=== PATIENT | male | born 1950 | race Caucasian/White ===

== ENCOUNTER 2024-04-20 01:21 | Observation (INO) | payer OTHER ==
[2024-04-20 01:29] VITALS: BMI 33.0
[2024-04-20] MEDS ORDERED: ASPIRIN 325 MG TABLET ONE (01:56)
[2024-04-20] MEDS: ASPIRIN 81 MG CHEWABLE TABLETS PO ONE (02:08)
[2024-04-20] MEDS ORDERED: PANTOPRAZOLE 40 MG TABLET PO ONE (02:56)
[2024-04-20] MEDS: PANTOPRAZOLE 40 MG TABLET PO ONE (03:03)
[2024-04-20 03:24] LABS: BASO % 0.7 % (0-2.0); EOS % 2.4 % (0-4.5); HEMATOCRIT 44.8 % (35.4-49); HEMOGLOBIN 15.4 GM/dL (11.7-16.9); LYMPH % 15.3 % (8-40); MCH 27.6 pg (25.7-33.7); MCHC 34.4 g/dl (32.0-35.9); MEAN CELL VOLUME 80.2 fl (80-96); MEAN PLT VOLUME 7.2 fl (7.5-11.1); NEUT % 72.6 % (42.8-82.8); PLATELET COUNT 259 10^3/uL (134-434); RBC 5.59 M/mm3 (4.00-5.60); RDW 14.6 % (11.9-15.9); WHITE BLOOD COUNT 7.8 K/mm3 (4.0-10.0)
[2024-04-20 03:27] LABS: INR 1.28 (0.83-1.09); PROTHROMBIN TIME (PATIENT) 14.6 SEC (9.7-13.0)
[2024-04-20 03:45] LABS: POTASSIUM 3.7 mmol/L (3.5-5.1)
[2024-04-20 03:46] LABS: ALBUMIN 4.4 g/dl (3.4-5.0); BLOOD UREA NITROGEN 35.5 mg/dL (7-18)
[2024-04-20 03:50] LABS: CREATININE 1.8 mg/dL (0.55-1.3)
[2024-04-20 03:51] LABS: BILIRUBIN,TOTAL 0.5 mg/dL (0.2-1)
[2024-04-20] MEDS: SODIUM CHLORIDE 0.9% 500 ML INFUS.BAG IV ONE (04:01)
[2024-04-20] MEDS: HYDROCHLOROTHIAZIDE 25 MG TABLET (FP) PO SCH (09:17)
[2024-04-20] MEDS: amLODIPine BESYLATE 5 MG TABLET (FP) PO SCH (09:17)
[2024-04-20] MEDS: APIXABAN 5 MG TABLET PO SCH (09:18)
[2024-04-20] MEDS: SPIRONOLACTONE 25 MG TABLET PO SCH (09:18)
[2024-04-20] MEDS: SERTRALINE HCL 50 MG TABLET (FP) PO SCH (09:18)
[2024-04-20 09:52] LABS: HEMATOCRIT 49.3 % (35.4-49); HEMOGLOBIN 16.2 G/dL (11.7-16.9); MCH 27.5 pg (25.7-33.7); MCHC 32.9 g/dl (32.0-35.9); MEAN CELL VOLUME 83.7 fl (80-96); MEAN PLT VOLUME 7.9 fl (7.5-11.1); PLATELET COUNT 199.2 10^3/uL (134-434); RBC 5.89 10^6/uL (4.00-5.60); RDW 15.5 % (11.9-15.9); WHITE BLOOD COUNT 6.8 10^3/uL (4.0-10.8)
[2024-04-20] MEDS ORDERED: amLODIPine BESYLATE 5 MG TABLET (FP) PO SCH (10:00)
[2024-04-20] MEDS ORDERED: APIXABAN 5 MG TABLET PO SCH (10:00)
[2024-04-20 10:18] LABS: CALCIUM 10.3 mg/dl (8.5-10.1); CREATININE 1.8 mg/dl (0.6-1.3); POTASSIUM 3.7 mmol/L (3.5-5.1)
[2024-04-20 11:45] VITALS: BP 156/90; PULSE 71; RESP 15; TEMP 98.5
[2024-04-20] MEDS ORDERED: ATORVASTATIN CA 40 MG TABLET (FP) PO SCH (22:00)
== END 2024-04-20 13:20 | disposition home or self-care (01) ==
LOC: FER 01:21 → FM/S 05:18
PROVIDERS: ADMIT Internal Medicine; ATTEND Internal Medicine
PROC: 3E0337Z Introduction of Electrolytic and Water Balance Substance into Peripheral Vein, Percutaneous Approach (ICD-10-PCS; principal; 2024-04-20)
DX: N18.32 Chronic kidney disease, stage 3b (principal); G47.33 Obstructive sleep apnea (adult) (pediatric); R07.2 Precordial pain; Z99.81 Dependence on supplemental oxygen; Z88.8 Allergy status to other drugs, medicaments and biological substances; Z88.0 Allergy status to penicillin
CPT/HCPCS: 36415; 71046-TC-FY; 80048; 80053; 80061; 82550; 82553; 83880; 84443; 84484; 85025; 85027; 85610; 93005; 99285-25; G0378